=== PATIENT | female | born 1990 | race Two or more races ===

== ENCOUNTER 2020-11-29 21:49 | Emergency (ER) | payer BC ==
[~2020-11-29] VITALS: Ht 162.6 cm; Wt 68.0 kg
[2020-11-29 21:59] VITALS: BP 116/70
[2020-11-29] MEDS ORDERED: LIDOCAINE 1% INJ 50 ML MDV IJ ONE (22:08)
[2020-11-29] MEDS ORDERED: LIDOCAINE 1%-EPI 1:100,000 20 ML VIAL TP ONE (22:30)
== END 2020-11-29 22:29 | disposition home or self-care (01) ==
LOC: ER 21:58
DX: S61.304A Unspecified open wound of right ring finger with damage to nail, initial encounter (principal); W23.0XXA Caught, crushed, jammed, or pinched between moving objects, initial encounter; Y93.89 Activity, other specified; Y92.89 Other specified places as the place of occurrence of the external cause; Y99.8 Other external cause status
CPT/HCPCS: 11730; 99284; J3490